=== PATIENT | male | born 1965 | race Caucasian/White ===

== ENCOUNTER 2016-08-06 09:01 | Emergency (ER) | payer OTHER ==
--- NOTE | 2016-08-06 09:34 | ED ---
Back Pain HPI - General Chief Complaint: Back Pain/Injury Stated Complaint: Back pain Time Seen by Provider: 08/06/16 09:22 Source: patient, RN notes reviewed Mode of arrival: ambulatory Limitations: no limitations - History of Present Illness Initial Comments: 50-year-old male presents emergency Department with chief complaint low back pain. Patient states she's had this ongoing pain for one month after he was splitting some wood and lifting what. She states she did not feel slight twinges to his back at that time. Patient denies any bowel or bladder incontinence or retention. Patient states that he has some pain that radiates from his right buttocks, right low back region to his right thigh down to his knee. He occasionally has some paresthesias type pain. Patient states that symptoms are slightly improving but states it's not much better as he would expect after one month. Patient states he has no abdominal pain including nausea, vomiting diarrhea constipation. Patient states it is not here for pain medication as he currently takes [place]. - Related Data Home Medications Medication Instructions Recorded Confirmed Atenolol [Tenormin] 25 mg PO DAILY 06/02/15 08/06/16 Cyclobenzaprine [Flexeril] 10 mg PO HS 06/02/15 08/06/16 HYDROcodone/APAP 7.5-325MG [[place] 1 tab PO TID PRN 06/02/15 08/06/16 7.5-325] ALPRAZolam [Xanax] 0.5 mg PO DAILY PRN 08/06/16 08/06/16 Gluc/[place]-MSM#1/C/Unruly/Pete/Bor 1 tab PO DAILY 08/06/16 08/06/16 [Glucosamine-Chondroitin Tablet] Lisinopril [Prinivil] 5 mg PO DAILY 08/06/16 08/06/16 Previous Rx's Medication Instructions Recorded Ibuprofen [Motrin] 600 mg PO Q8HR PRN #30 tab 06/02/15 Cyclobenzaprine [Flexeril] 10 mg PO TID PRN #15 tab 08/06/16 methylPREDNISolone [Medrol Dose 4 mg PO DIRECTED #1 pack 08/06/16 Pack] Allergies Allergy/AdvReac Type Severity Reaction Status Date / Time No Known Allergies Allergy Verified 08/06/16 09:25 Review of Systems ROS Statement: Those systems with pertinent positive or pertinent negative responses have been documented in the HPI. ROS Other: All systems not noted in ROS Statement are negative. Past Medical History Past Medical History: Hypertension History of Any Multi-Drug Resistant Organisms: None Reported Past Surgical History: Orthopedic Surgery Additional Past Surgical History / Comment(s): left leg multiple orthopedic surgeries due to accident Past Psychological History: No Psychological Hx Reported Smoking Status: Former smoker Past Alcohol Use History: Rare Past Drug Use History: None Reported General Exam Limitations: no limitations General appearance: alert, in no apparent distress Head exam: Present: atraumatic, normocephalic, normal inspection Neck exam: Present: normal inspection, full ROM. Absent: tenderness, meningismus, lymphadenopathy Respiratory exam: Present: normal lung sounds bilaterally. Absent: respiratory distress, wheezes, rales, rhonchi, stridor Cardiovascular Exam: Present: regular rate, normal rhythm, normal heart sounds. Absent: systolic murmur, diastolic murmur, rubs, gallop, clicks GI/Abdominal exam: Present: soft, normal bowel sounds. Absent: distended, tenderness, guarding, rebound, rigid Extremities exam: Present: normal inspection, full ROM, normal capillary refill , other (Equal strength of lower extremity is 5/5 neurovascular intact). Absent : tenderness, pedal edema, joint swelling, calf tenderness Back exam: Present: full ROM, other (Mild pain with straight leg raise on the right). Absent: tenderness, paraspinal tenderness, vertebral tenderness Neurological exam: Present: alert, reflexes normal. Absent: motor sensory deficit Skin exam: Present: warm, dry, intact, normal color. Absent: rash Course Vital Signs 08/06/16 09:10 Temperature 98.1 F Pulse Rate 76 Respiratory 20 Rate Blood Pressure 127/84 O2 Sat by Pulse 99 Oximetry Medical Decision Making - Medical Decision Making 50-year-old male presented emergency department for back pain. Lumbar spine shows multilevel degenerative disc disease, grade 1 retrolisthesis L2-L3 and grade 1 anterolisthesis L3-L4. Patient was treated with steroids, muscle relaxer at this time. Patient will follow-up with Dr. Frausto teacher specialist. Return parameters were discussed. Disposition Clinical Impression: Strain of lumbar region, Lumbar radiculopathy, acute Disposition: HOME SELF-CARE Condition: Stable Instructions: Acute Low Back Pain (ED) Additional Instructions: Please return to the Emergency Department if symptoms worsen or any other concerns. Prescriptions: Cyclobenzaprine [Flexeril] 10 mg PO TID PRN #15 tab PRN Reason: Muscle Spasm methylPREDNISolone [Medrol Dose Pack] 4 mg PO DIRECTED #1 pack Referrals: Mukesh Escamilla MD [Primary Care Provider] - 1-2 days Venancio Lemons DO [Doctor of Osteopathic Medicine] - 1-2 days Time of Disposition: 09:58
--- NOTE | 2016-08-06 09:47 | XR ---
EXAMINATION TYPE: XR lumbosacral spine min 4V DATE OF EXAM: 08/06/2016 9:41 AM COMPARISON: NONE HISTORY: 50-year-old male low back pain for a month. TECHNIQUE: 5 views FINDINGS: Slight rightward truncal shift. 5 lumbar type vertebral bodies. No pars interarticularis defect. Ther e is facet arthropathy in the mid to lower lumbar spine with mild multilevel endplate spondylosis. Th ere is grade 1 retrolisthesis at L2-L3 and grade 1 anterolisthesis at L3-L4. Mild disc interspace percy rowing throughout. Tubal body heights are preserved. Atherosclerotic calcifications within the abdomi nal aorta. IMPRESSION: 1. Rightward truncal shift could be positional or reflect muscle spasm. 2. Mild multilevel degenerative disc disease. Greater degree of facet arthropathy in the mid to lower lumbar spine. 3. Grade 1 retrolisthesis at L2-L3 and grade 1 anterolisthesis at L3-L4. 4. No vertebral compression collapse.
--- NOTE | 2016-08-06 10:04 | ED ---
Disposition Clinical Impression: Strain of lumbar region, Lumbar radiculopathy, acute, Pain due to dental caries Disposition: HOME SELF-CARE Condition: Stable Instructions: Acute Low Back Pain (ED) Additional Instructions: Please return to the Emergency Department if symptoms worsen or any other concerns. Prescriptions: Amoxicillin 875 mg PO Q12HR #20 tablet Methocarbamol [Robaxin-750] 750 mg PO TID #15 tablet methylPREDNISolone [Medrol Dose Pack] 4 mg PO DIRECTED #1 pack Referrals: Venancio Lemons DO [Doctor of Osteopathic Medicine] - 1-2 days Mukesh Escamilla MD [Primary Care Provider] - 1-2 days Time of Disposition: 10:04
[2016-08-06 10:27] VITALS: BP 124/84; PULSE 69; RESP 16; TEMP 98.3
== END 2016-08-06 10:30 | disposition home or self-care (01) ==
LOC: EC 09:01
DX: S39.012A Strain of muscle, fascia and tendon of lower back, initial encounter (principal); I10 Essential (primary) hypertension; Z87.891 Personal history of nicotine dependence; Z79.899 Other long term (current) drug therapy; X50.0XXA Overexertion from strenuous movement or load, initial encounter
CPT/HCPCS: 72110; 99283

== ENCOUNTER 2016-08-23 07:39 | Emergency (ER) | payer OTHER ==
[2016-08-23 07:48] VITALS: BP 137/91; PULSE 86; RESP 20; TEMP 99.3
[2016-08-23] MEDS ORDERED: IPRATROPIUM-ALBUTEROL 3 ML NEB INHALATION STA (08:17)
[2016-08-23] MEDS ORDERED: predniSONE 50 MG TAB PO STA (08:17)
--- NOTE | 2016-08-23 08:18 | XR ---
EXAMINATION TYPE: XR chest 2V DATE OF EXAM: 08/23/2016 8:12 AM COMPARISON: 08/08/2012 HISTORY: Chest pain TECHNIQUE: Frontal and lateral views of the chest are obtained. FINDINGS: There is no focal air space opacity. No evidence for pnuemothorax.No pleural effusion. The cardiac silhouette size is within normal limits. The osseous structures are grossly intact. IMPRESSION: 1. No acute cardiopulmonary process.
--- NOTE | 2016-08-23 08:18 | ED ---
URI HPI - General Chief Complaint: Upper Respiratory Infection Stated Complaint: CHEST CONGESTION AND COUGH Time Seen by Provider: 08/23/16 08:02 Source: patient, RN notes reviewed Mode of arrival: ambulatory Limitations: no limitations - History of Present Illness Initial Comments: 50-year-old male presents emergency Department chief complaint cough and cold- like symptoms. Patient has been sick for last 2 days. Patient states cough is productive with yellow phlegm. Patient states she's had multiple sick contacts at work. Patient is also concern is his has lung cancer. Patient states that he has noticed some wheezing at home. Denies any smoking at this time. Denies any known asthma or COPD. Patient denies fever, chills, ear pain or sore throat. He does have mild sinus congestion denies seasonal ALLERGIES. - Related Data Home Medications Medication Instructions Recorded Confirmed Atenolol [Tenormin] 25 mg PO DAILY 06/02/15 08/23/16 Cyclobenzaprine [Flexeril] 10 mg PO HS 06/02/15 08/23/16 HYDROcodone/APAP 7.5-325MG [[place] 1 tab PO TID PRN 06/02/15 08/23/16 7.5-325] ALPRAZolam [Xanax] 0.5 mg PO HS 08/06/16 08/23/16 Lisinopril [Prinivil] 5 mg PO DAILY 08/06/16 08/23/16 Ibuprofen [Motrin] 800 mg PO BID PRN 08/23/16 08/23/16 Previous Rx's Medication Instructions Recorded Albuterol Sulfate [Proair Hfa] 1 - 2 puff INHALATION Q4HR PRN #1 08/23/16 inhaler Azithromycin [Zithromax Z-pack] 0 mg PO DIRECTED #1 pack 08/23/16 methylPREDNISolone [Medrol Dose 4 mg PO DIRECTED #1 pack 08/23/16 Pack] Allergies Allergy/AdvReac Type Severity Reaction Status Date / Time No Known Allergies Allergy Verified 08/23/16 08:05 Review of Systems ROS Statement: Those systems with pertinent positive or pertinent negative responses have been documented in the HPI. ROS Other: All systems not noted in ROS Statement are negative. Past Medical History Past Medical History: Hypertension History of Any Multi-Drug Resistant Organisms: None Reported Past Surgical History: Orthopedic Surgery Additional Past Surgical History / Comment(s): left leg multiple orthopedic surgeries due to accident Past Psychological History: No Psychological Hx Reported Smoking Status: Former smoker Past Alcohol Use History: Rare Past Drug Use History: None Reported General Exam Limitations: no limitations General appearance: alert, in no apparent distress Head exam: Present: atraumatic, normocephalic, normal inspection Eye exam: Present: normal appearance, PERRL, EOMI. Absent: scleral icterus, conjunctival injection, periorbital swelling ENT exam: Present: normal exam, normal oropharynx, mucous membranes moist, TM's normal bilaterally, normal external ear exam Neck exam: Present: normal inspection, full ROM. Absent: tenderness, meningismus, lymphadenopathy Respiratory exam: Present: wheezes (faint Bilaterally). Absent: normal lung sounds bilaterally, respiratory distress, rales, rhonchi, stridor Cardiovascular Exam: Present: regular rate, normal rhythm, normal heart sounds. Absent: systolic murmur, diastolic murmur, rubs, gallop, clicks Neurological exam: Present: alert Skin exam: Present: warm, dry, intact, normal color. Absent: rash Course Vital Signs 08/23/16 08/23/16 08/23/16 07:45 08:39 08:49 Temperature 99.3 F Pulse Rate 86 86 86 Respiratory 20 Rate Blood Pressure 137/91 O2 Sat by Pulse 97 Oximetry - Reevaluation(s) Reevaluation #1: 08/23/16 08:57 Patient was reevaluated after DuoNeb treatment. Patient is moving air better, minimal wheezing. Updated on chest x-ray results. Medical Decision Making - Medical Decision Making 50-year-old male presented for cough and cold-like symptoms. Patient had acute bronchitis. Patient be given Proventil inhaler, steroids. Patient is concerned about family members in the household secondary to having lung cancer. Patient informed is most likely viral but will be given antibiotics at this time. Patient will be discharged return parameters were discussed. Disposition Clinical Impression: Acute bronchitis with bronchospasm Disposition: HOME SELF-CARE Condition: Stable Instructions: Acute Bronchitis (ED) Additional Instructions: Please return to the Emergency Department if symptoms worsen or any other concerns. Prescriptions: Albuterol Sulfate [Proair Hfa] 1 - 2 puff INHALATION Q4HR PRN #1 inhaler PRN Reason: difficulty in breathing Azithromycin [Zithromax Z-pack] 0 mg PO DIRECTED #1 pack methylPREDNISolone [Medrol Dose Pack] 4 mg PO DIRECTED #1 pack Time of Disposition: 08:59
== END 2016-08-23 09:24 | disposition home or self-care (01) ==
LOC: EC 07:39
DX: J20.9 Acute bronchitis, unspecified (principal); I10 Essential (primary) hypertension; Z87.891 Personal history of nicotine dependence; Z79.899 Other long term (current) drug therapy
CPT/HCPCS: 99283 ×2; 94640; 71020; J7512

== ENCOUNTER 2017-04-16 11:08 | Emergency (ER) | payer OTHER ==
[2017-04-16 12:03] LABS: Basophils # (A) 0.1 k/uL (0-0.2); Basophils % (A) 0 %; CH 31.7; CHCM 35.3; Eosinophils # (A) 0.4 k/uL (0-0.7); Eosinophils % (A) 4 %; HCT 42.2 % (39.0-53.0); HDW 2.39; HGB 14.4 gm/dL (13.0-17.5); Luc # (Auto) 0.15; Luc % (Auto) 1; Lymphocytes # (A) 2.3 k/uL (1.0-4.8); Lymphocytes % (A) 21 %; MCH 30.8 pg (25.0-35.0); MCHC 34.2 g/dL (31.0-37.0); Mean Platelet Volume 6.5; Monocytes # (A) 0.7 k/uL (0-1.0); Monocytes % (A) 6 %; Neutrophils # (A) 7.4 k/uL (1.3-7.7); Neutrophils % (A) 68 %; RBC 4.69 m/uL (4.30-5.90); RDW 11.9 % (11.5-15.5); WBC (Perox) 10.47
[2017-04-16 12:11] LABS: ALT 37 U/L (21-72); AST 23 U/L (17-59); Alkaline Phosphatase 86 U/L (38-126); Anion Gap 9 mmol/L; Blood Urea Nitrogen 13 mg/dL (9-20); C Reactive Protein 21.9 mg/L (<10.0); Calcium 9.8 mg/dL (8.4-10.2); Carbon Dioxide 25 mmol/L (22-30); Chloride 104 mmol/L (98-107); Glucose 98 mg/dL (74-99); Non-African American GFR(MDRD) >60 (>60 ml/min/1.73 sqM); Potassium 4.4 mmol/L (3.5-5.1); Sodium 138 mmol/L (137-145); Total Bilirubin 0.5 mg/dL (0.2-1.3); Total Protein 6.9 g/dL (6.3-8.2)
--- NOTE | 2017-04-16 12:24 | XR ---
EXAMINATION TYPE: XR elbow complete RT DATE OF EXAM: 04/16/2017 COMPARISON: NONE HISTORY: 51-year-old male with pain TECHNIQUE: 3 views FINDINGS: There is prominent focal soft tissue swelling overlying the olecranon. No elbow joint effusion. Tiny ossicle along the anterior aspect of the medial condyle could represent sequela of remote injury. No acute fracture, subluxation, or dislocation. IMPRESSION: Focal olecranon soft tissue swelling could represent soft tissue contusion, an olecranon bursitis, or cellulitis. No underlying acute osseous abnormality seen.
--- NOTE | 2017-04-16 12:32 | ED ---
General Adult HPI - General Chief complaint: Extremity Problem,Nontraumatic Stated complaint: Elbow swelling Time Seen by Provider: 04/16/17 11:27 Source: patient, RN notes reviewed Mode of arrival: ambulatory Limitations: no limitations - History of Present Illness Initial comments: 51-year-old male presents to the emergency department with a chief complaint of right elbow redness and swelling. He states he's had this for the last week or so. He states is now becoming warm. He states he is able to move the elbow without difficulty. He states that he hasn't noticed a fever chills at home. He was concerned due to the continued redness and swelling so he thought that he should be seen. Patient denies any recent fever, chills, shortness of breath , chest pain, back pain, abdominal pain, nausea vomiting, numbness or tingling, dysuria or hematuria, constipation or diarrhea, headaches or visual changes, or any other current symptoms. - Related Data Home Medications Medication Instructions Recorded Confirmed Cyclobenzaprine [Flexeril] 10 mg PO HS 06/02/15 04/16/17 HYDROcodone/APAP 7.5-325MG [[place] 1 tab PO TID PRN 06/02/15 04/16/17 7.5-325] Lisinopril [Prinivil] 5 mg PO DAILY 08/06/16 04/16/17 Ibuprofen [Motrin] 600 mg PO BID PRN 04/16/17 04/16/17 Metoprolol Tartrate [Lopressor] 25 mg PO BID 04/16/17 04/16/17 QUEtiapine [SEROquel] 50 mg PO HS 04/16/17 04/16/17 traZODone HCL [Desyrel] 100 mg PO HS 04/16/17 04/16/17 Previous Rx's Medication Instructions Recorded Cephalexin [Keflex] 500 mg PO Q6HR #40 cap 04/16/17 Sulfamethox-Tmp 800-160Mg [Bactrim 2 each PO Q12HR #56 tab 04/16/17 DS 800-160 mg] Allergies Allergy/AdvReac Type Severity Reaction Status Date / Time No Known Allergies Allergy Verified 04/16/17 11:15 Review of Systems ROS Statement: Those systems with pertinent positive or pertinent negative responses have been documented in the HPI. ROS Other: All systems not noted in ROS Statement are negative. Past Medical History Past Medical History: Hypertension History of Any Multi-Drug Resistant Organisms: None Reported Past Surgical History: Orthopedic Surgery Additional Past Surgical History / Comment(s): left leg multiple orthopedic surgeries due to accident Past Psychological History: No Psychological Hx Reported Smoking Status: Former smoker Past Alcohol Use History: Rare Past Drug Use History: None Reported General Exam - General Exam Comments Initial Comments: General: The patient is awake and alert, in no distress, and does not appear acutely ill. Neck: The neck is supple, there is no tenderness. Cardiovascular: There is a regular rate and rhythm. No murmur, rub or gallop is appreciated. Respiratory: Lungs are clear to auscultation, respirations are non-labored, breath sounds are equal. No wheezes, stridor, rales, or rhonchi. Musculoskeletal: Sensation intact. 2+ pulses at the right upper x-ray. Range of motion of right wrist right elbow and right shoulder. Patient does appear to have some redness and swelling over the olecranon bursa that extends around the left elbow. 5 out of 5 muscle strength testing throughout. Neurological: CN II-XII intact, There are no obvious motor or sensory deficits. Coordination appears grossly intact. Speech is normal. Skin: Skin is warm and dry and no rashes or lesions are noted. Psychiatric: Normal mood and affect. Limitations: no limitations Course Vital Signs 04/16/17 11:13 Temperature 100.0 F H Pulse Rate 90 Respiratory 20 Rate Blood Pressure 123/79 O2 Sat by Pulse 98 Oximetry Procedures - Orthopedic Splinting/Casting Injury #1 Side: right Upper Extremity Injury Location: elbow Upper Extremity Immobilizer: Cedric wrap Medical Decision Making - Medical Decision Making 51-year-old male presents for what appears to be a right olecranon bursitis and cellulitis. At this time patient does not have a high white count. Patient's fever was 100 here in the emergency department. This time he is full range of motion of the right elbow. We will start him on outpatient antibiotics we did patient Cedric wrap. We did discuss close follow up with orthopedic discussed return parameters all the patient's questions. He stated the Robert is given this plan. Patient discharged. - Lab Data Result diagrams: 04/16/17 11:44 04/16/17 11:44 Lab Results 04/16/17 04/16/17 Range/Units 11:44 11:44 WBC 11.0 H (3.8-10.6) k/uL RBC 4.69 (4.30-5.90) m/uL Hgb 14.4 (13.0-17.5) gm/dL Hct 42.2 (39.0-53.0) % MCV 90.0 (80.0-100.0) fL MCH 30.8 (25.0-35.0) pg MCHC 34.2 (31.0-37.0) g/dL RDW 11.9 (11.5-15.5) % Plt Count 279 (150-450) k/uL Neutrophils % 68 % Lymphocytes % 21 % Monocytes % 6 % Eosinophils % 4 % Basophils % 0 % Neutrophils # 7.4 (1.3-7.7) k/uL Lymphocytes # 2.3 (1.0-4.8) k/uL Monocytes # 0.7 (0-1.0) k/uL Eosinophils # 0.4 (0-0.7) k/uL Basophils # 0.1 (0-0.2) k/uL ESR 8 (0-15) mm/hr Sodium 138 (137-145) mmol/L Potassium 4.4 (3.5-5.1) mmol/L Chloride 104 (98-107) mmol/L Carbon Dioxide 25 (22-30) mmol/L Anion Gap 9 mmol/L BUN 13 (9-20) mg/dL Creatinine 0.90 (0.66-1.25) mg/dL Est GFR (MDRD) Af Amer >60 (>60 ml/min/1.73 sqM) Est GFR (MDRD) Non-Af >60 (>60 ml/min/1.73 sqM) Glucose 98 (74-99) mg/dL Calcium 9.8 (8.4-10.2) mg/dL Total Bilirubin 0.5 (0.2-1.3) mg/dL AST 23 (17-59) U/L ALT 37 (21-72) U/L Alkaline Phosphatase 86 (38-126) U/L C-Reactive Protein 21.9 H (<10.0) mg/L Total Protein 6.9 (6.3-8.2) g/dL Albumin 4.1 (3.5-5.0) g/dL - Radiology Data Radiology results: report reviewed, image reviewed Disposition Clinical Impression: Olecranon bursitis, right elbow, Cellulitis of right elbow Disposition: HOME SELF-CARE Condition: Stable Instructions: Cellulitis (ED), Elbow Bursitis (ED) Additional Instructions: Please use medication as discussed. Please follow up with family doctor if symptoms have not improved over the next two days. Please return to the emergency room if your symptoms increase or worsen or for any other concerns. Prescriptions: Cephalexin [Keflex] 500 mg PO Q6HR #40 cap Sulfamethox-Tmp 800-160Mg [Bactrim DS 800-160 mg] 2 each PO Q12HR #56 tab Referrals: Mukesh Escamilla MD [Primary Care Provider] - 1-2 days Kael Avila DO [Doctor of Osteopathic Medicine] - 1-2 days Time of Disposition: 13:28
[2017-04-16 13:24] LABS: Erythrocyte Sedimentation Rate 8 mm/hr (0-15)
[2017-04-16 13:50] VITALS: BP 125/80; PULSE 84; RESP 18; TEMP 98.9
== END 2017-04-16 13:48 | disposition home or self-care (01) ==
LOC: EC 11:08
DX: M70.21 Olecranon bursitis, right elbow (principal); L03.113 Cellulitis of right upper limb; I10 Essential (primary) hypertension; Z87.891 Personal history of nicotine dependence; Z79.899 Other long term (current) drug therapy
CPT/HCPCS: 36415; 80053; 85025; 85652; 86140; 87040; 99283

== ENCOUNTER 2023-03-30 08:45 | Emergency (ER) | payer OTHER ==
[2023-03-30] MEDS ORDERED: FAMOTIDINE 20 MG/2 ML VIAL IV STA (08:58)
[2023-03-30] MEDS ORDERED: SODIUM CHLORIDE 0.9% 1,000 ML IV STA (08:58)
[2023-03-30] MEDS ORDERED: MAG HYDROX/AL HYDROX/SIMETH 30 ML, HYOSCYAMINE ELIXIR 10 ML PO STA ×2 (08:58)
[2023-03-30 09:05] VITALS: RESP 18
--- NOTE | 2023-03-30 09:07 | ED ---
Abdominal Pain HPI - General Chief Complaint: Abdominal Pain Stated Complaint: abd/stomach issues Time Seen by Provider: 03/30/23 08:51 Source: patient, RN notes reviewed Mode of arrival: ambulatory Limitations: no limitations - History of Present Illness Initial Comments: This is a 57-year-old male who presents to the emergency department for abdominal pain. States that this has been going on for about 10 days. This tends to move all throughout his abdomen. Sometimes it is localized to the epigastric region, however it is currently the most prominent in the left lower quadrant. The pain and nausea tend to occur in waves. He did have similar p roblems with his abdomen in the past when he would take too many anti- inflammatories and ended up with black stool. However, he has not been on any anti-inflammatories and he denies having any dark stool at this time. He has been taking Tums and other [id number] antacids with no relief in symptoms. Not currently taking a PPI. Denies any fevers or chills. States that whenever he goes to eat something, immediately afterwards he feels uncomfortable and has to stop eating. He cannot attribute this to any foods specifically. MD Complaint: abdominal pain - Related Data Home Medications Medication Instructions Recorded Confirmed Cyclobenzaprine [Flexeril] 10 mg PO HS 06/02/15 04/16/17 HYDROcodone/APAP 7.5-325MG [[place] 1 tab PO TID PRN 06/02/15 04/16/17 7.5-325] lisinopriL [Prinivil] 5 mg PO DAILY 08/06/16 04/16/17 Ibuprofen [Motrin] 600 mg PO BID PRN 04/16/17 04/16/17 Metoprolol Tartrate [Lopressor] 25 mg PO BID 04/16/17 04/16/17 QUEtiapine [SEROquel] 50 mg PO HS 04/16/17 04/16/17 traZODone HCL [Desyrel] 100 mg PO HS 04/16/17 04/16/17 Previous Rx's Medication Instructions Recorded Cephalexin [Keflex] 500 mg PO Q6HR #40 cap 04/16/17 Sulfamethox-Tmp 800-160Mg [Bactrim 2 each PO Q12HR #56 tab 04/16/17 DS 800-160 mg] Hyoscyamine Sulfate [Levsin] 0.125 mg PO Q4H PRN #30 tab 03/30/23 Omeprazole 20 mg PO BID 15 Days #30 cap 03/30/23 Ondansetron Odt [Zofran Odt] 4 mg PO Q8HR PRN #15 tab 03/30/23 Allergies Allergy/AdvReac Type Severity Reaction Status Date / Time No Known Allergies Allergy Verified 03/30/23 08:50 Review of Systems ROS Statement: Those systems with pertinent positive or pertinent negative responses have been documented in the HPI. ROS Other: All systems not noted in ROS Statement are negative. Past Medical History Past Medical History: Hypertension History of Any Multi-Drug Resistant Organisms: None Reported Past Surgical History: Orthopedic Surgery Additional Past Surgical History / Comment(s): left leg multiple orthopedic surgeries due to accident Past Psychological History: No Psychological Hx Reported Past Alcohol Use History: Rare Past Drug Use History: Marijuana General Exam Limitations: no limitations General appearance: alert, in no apparent distress Head exam: Present: atraumatic, normocephalic, normal inspection Respiratory exam: Present: normal lung sounds bilaterally. Absent: respiratory distress, wheezes, rales, rhonchi, stridor Cardiovascular Exam: Present: regular rate, normal rhythm, normal heart sounds. Absent: systolic murmur, diastolic murmur, rubs, gallop, clicks GI/Abdominal exam: Present: soft, tenderness (Diffuse, but most prominent in the LLQ), normal bowel sounds. Absent: distended, guarding, rebound, rigid Neurological exam: Present: alert, oriented X3, CN II-XII intact Psychiatric exam: Present: normal affect, normal mood Skin exam: Present: warm, dry, intact, normal color. Absent: rash Course Vital Signs 03/30/23 03/30/23 08:47 10:55 Temperature 98.4 F 98.2 F Pulse Rate 92 73 Respiratory 18 18 Rate Blood Pressure 145/95 116/83 O2 Sat by Pulse 95 97 Oximetry Medical Decision Making - Medical Decision Making This is a 57-year-old male who presents to the emergency department for abdominal pain. Was pt. sent in by a medical professional or institution? @ -No Did you speak to anyone other than the patient for history? @ -No Did you review nursing and triage notes? @ -I disagree with the aspect about dark stool, patient currently denies this and states that he used to have dark tool with other stomach issues. Were old charts reviewed? @ -No Differential Diagnosis? @ -Differential Abdominal Pain Men: Appendicitis, cholecystitis, diverticulosis, ischemic bowel, pancreatitis, hepatitis, UTI, gastroenteritis, AAA, incarcerated hernia, bowel obstruction, constipation, inflammatory bowel, hepatitis, peptic ulcer disease, splenic infarction, perforated viscus, testicular torsion, this is not meant to be an all-inclusive list EKG interpreted by me (3pts min.)? @ -Not obtained X-rays interpreted by me (1pt min.)? @ -Not obtained CT interpreted by me (1pt min.)? @ -Computed tomography scan of the abdomen and pelvis obtained. My interpretation identifies no evidence of a ureteral calculus or free air. U/S interpreted by me (1pt. min.)? @ -Not obtained What testing was considered but not performed? (CT, X-rays, U/S, labs)? Why? @ -None What meds were considered but not given? Why? @ -None Did you discuss the management of the patient with other professionals? @ -No Did you reconcile home meds? @ -No Was smoking cessation discussed for >3mins.? @ -No Was critical care preformed (if so, how long)? @ -No Were there social determinants of health that impacted care today? How? (Homelessness, low income, unemployed, alcoholism, drug addiction, transportation, low edu. Level, literacy, decrease access to med. care, usp, rehab)? @ -No Was there de-escalation of care discussed even if they declined? (Discuss DNR or withdrawal of care, Hospice)? @ -No What co-morbidities impacted this encounter? (DM, HTN, Smoking, COPD, CAD, Cancer, CVA, Hep., AIDS, mental health diagnosis, sleep apnea, morbid obesity)? @ -None Was patient admitted / discharged? @ -Discharged. Lab work obtained and found to be unremarkable. Urinalysis negative for signs of infection. Computed tomography scan of the abdomen and pelvis obtained revealing findings consistent with peptic ulcer disease without evidence of perforation. There was some inflammation that was said could be related to pancreatitis, however the patient has normal pancreatic enzymes. There is also a benign left adrenal nodule that'll need a follow-up computed tomography scan in 12 months. Patient treated with IV fluids, famotidine, and a GI cocktail, with significant relief in symptoms. Rx for omeprazole, levsin, and zofran provided with dosing instructions reviewed. Advised that the Levsin combined with [id number] Maalox is equivalent to the GI cocktail he received in the emergency department. Information for GI follow up provided. He is instructed to contact them for a follow up appointment. Patient discharged home in stable condition. Undiagnosed new problem with uncertain prognosis? @ -None Drug Therapy requiring intensive monitoring for toxicity (Heparin, Nitro, Insulin, Cardizem)? @ -None Were any procedures done? @ -None Diagnosis/symptom? @ -Peptic ulcer Acute, or Chronic, or Acute on Chronic? @ -Acute Uncomplicated (without systemic symptoms) or Complicated (systemic symptoms)? @ -Uncomplicated Side effects of treatment? @ -None Exacerbation, Progression, or Severe Exacerbation] @ -Not applicable Poses a threat to life or bodily function? @ -No Return precautions reviewed in depth, the patient is instructed to return to the emergency department with any new, worsening, or concerning symptoms. Patient verbalized understanding. This case was discussed in detail with the attending ED physician, Dr. Foster. Presentation, findings, and treatment plan discussed in detail as well. - Lab Data Result diagrams: 03/30/23 09:00 03/30/23 09:00 Lab Results 03/30/23 03/30/23 03/30/23 Range/Units 09:00 09:00 09:00 WBC 10.6 (3.8-10.6) k/uL RBC 4.38 (4.30-5.90) m/uL Hgb 13.9 (13.0-17.5) gm/dL Hct 40.4 (39.0-53.0) % MCV 92.3 (80.0-100.0) fL MCH 31.8 (25.0-35.0) pg MCHC 34.5 (31.0-37.0) g/dL RDW 11.3 L (11.5-15.5) % Plt Count 379 (150-450) k/uL MPV 7.0 Neutrophils % 70 % Lymphocytes % 19 % Monocytes % 4 % Eosinophils % 5 % Basophils % 1 % Neutrophils # 7.5 (1.3-7.7) k/uL Lymphocytes # 2.0 (1.0-4.8) k/uL Monocytes # 0.4 (0-1.0) k/uL Eosinophils # 0.5 (0-0.7) k/uL Basophils # 0.1 (0-0.2) k/uL Sodium 136 L (137-145) mmol/L Potassium 4.5 (3.5-5.1) mmol/L Chloride 104 (98-107) mmol/L Carbon Dioxide 21 L (22-30) mmol/L Anion Gap 11 mmol/L BUN 13 (9-20) mg/dL Creatinine 0.82 (0.66-1.25) mg/dL Est GFR (CKD-EPI)AfAm >90 (>60 ml/min/1.73 sqM) Est GFR (CKD-EPI)NonAf >90 (>60 ml/min/1.73 sqM) Glucose 116 H (74-99) mg/dL Plasma Lactic Acid Hector (0.7-2.0) mmol/L Calcium 9.9 (8.4-10.2) mg/dL Total Bilirubin 0.5 (0.2-1.3) mg/dL AST 23 (17-59) U/L ALT 19 (4-49) U/L Alkaline Phosphatase 69 (38-126) U/L Total Protein 6.8 (6.3-8.2) g/dL Albumin 4.1 (3.5-5.0) g/dL Amylase 80 (30-110) U/L Lipase 57 (23-300) U/L Urine Color Yellow Urine Appearance Clear (Clear) Urine pH 5.0 (5.0-8.0) Ur Specific [place] 1.030 (1.001-1.035) Urine Protein Negative (Negative) Urine Glucose (UA) Negative (Negative) Urine Ketones Negative (Negative) Urine Blood Negative (Negative) Urine Nitrite Negative (Negative) Urine Bilirubin Negative (Negative) Urine Urobilinogen <2.0 (<2.0) mg/dL Ur Leukocyte Esterase Negative (Negative) 03/30/23 Range/Units 09:00 WBC (3.8-10.6) k/uL RBC (4.30-5.90) m/uL Hgb (13.0-17.5) gm/dL Hct (39.0-53.0) % MCV (80.0-100.0) fL MCH (25.0-35.0) pg MCHC (31.0-37.0) g/dL RDW (11.5-15.5) % Plt Count (150-450) k/uL MPV Neutrophils % % Lymphocytes % % Monocytes % % Eosinophils % % Basophils % % Neutrophils # (1.3-7.7) k/uL Lymphocytes # (1.0-4.8) k/uL Monocytes # (0-1.0) k/uL Eosinophils # (0-0.7) k/uL Basophils # (0-0.2) k/uL Sodium (137-145) mmol/L Potassium (3.5-5.1) mmol/L Chloride (98-107) mmol/L Carbon Dioxide (22-30) mmol/L Anion Gap mmol/L BUN (9-20) mg/dL Creatinine (0.66-1.25) mg/dL Est GFR (CKD-EPI)AfAm (>60 ml/min/1.73 sqM) Est GFR (CKD-EPI)NonAf (>60 ml/min/1.73 sqM) Glucose (74-99) mg/dL Plasma Lactic Acid Hector 0.9 (0.7-2.0) mmol/L Calcium (8.4-10.2) mg/dL Total Bilirubin (0.2-1.3) mg/dL AST (17-59) U/L ALT (4-49) U/L Alkaline Phosphatase (38-126) U/L Total Protein (6.3-8.2) g/dL Albumin (3.5-5.0) g/dL Amylase (30-110) U/L Lipase (23-300) U/L Urine Color Urine Appearance (Clear) Urine pH (5.0-8.0) Ur Specific [place] (1.001-1.035) Urine Protein (Negative) Urine Glucose (UA) (Negative) Urine Ketones (Negative) Urine Blood (Negative) Urine Nitrite (Negative) Urine Bilirubin (Negative) Urine Urobilinogen (<2.0) mg/dL Ur Leukocyte Esterase (Negative) - Radiology Data Radiology results: report reviewed, image reviewed Disposition Clinical Impression: Peptic ulcer disease Disposition: HOME SELF-CARE Instructions (If sedation given, give patient instructions): Peptic Ulcer (ED), Diet for Stomach Ulcers and Gastritis (ED) Additional Instructions: Return to the emergency department with any new, worsening, or concerning symptoms. Take the omeprazole twice daily for 15 days. Try to take this 30-60 minutes before eating or taking other medication. You can take the Levsin up to every 4 hours for abdominal discomfort. This combined with Maalox is the m edication we gave you in the emergency department. You can take the Zofran up to every 8 hours as needed for nausea and vomiting. Avoid anti-inflammatories such as ibuprofen or naproxen. Contact gastroenterology as listed below for a follow up appointment and reevaluation of ongoing symptoms. Follow up with your primary care provider in 1-2 days. Prescriptions: Hyoscyamine Sulfate [Levsin] 0.125 mg PO Q4H PRN #30 tab PRN Reason: Gi Upset Omeprazole 20 mg PO BID 15 Days #30 cap Ondansetron Odt [Zofran Odt] 4 mg PO Q8HR PRN #15 tab PRN Reason: Nausea And Vomiting Is patient prescribed a controlled substance at d/c from ED?: No Referrals: Walter Candelaria Jr, DO [Primary Care Provider] - 1-2 days Keena Calles MD [STAFF PHYSICIAN] - 1-2 days
[2023-03-30 09:23] LABS: Basophils # (A) 0.1 k/uL (0-0.2); Basophils % (A) 1 %; Eosinophils # (A) 0.5 k/uL (0-0.7); Eosinophils % (A) 5 %; HCT 40.4 % (39.0-53.0); HGB 13.9 gm/dL (13.0-17.5); Lymphocytes % (A) 19 %; MCH 31.8 pg (25.0-35.0); MCHC 34.5 g/dL (31.0-37.0); MCV 92.3 fL (80.0-100.0); Monocytes # (A) 0.4 k/uL (0-1.0); Monocytes % (A) 4 %; Neutrophils # (A) 7.5 k/uL (1.3-7.7); Neutrophils % (A) 70 %; Platelet Count 379 k/uL (150-450); RBC 4.38 m/uL (4.30-5.90); RDW 11.3 % (11.5-15.5); WBC 10.6 k/uL (3.8-10.6)
[2023-03-30 09:32] LABS: ALT 19 U/L (4-49); AST 23 U/L (17-59); African American GFR (CKD) >90 (>60 ml/min/1.73 sqM); Albumin 4.1 g/dL (3.5-5.0); Alkaline Phosphatase 69 U/L (38-126); Amylase 80 U/L (30-110); Anion Gap 11 mmol/L; Blood Urea Nitrogen 13 mg/dL (9-20); Calcium 9.9 mg/dL (8.4-10.2); Carbon Dioxide 21 mmol/L (22-30); Chloride 104 mmol/L (98-107); Glucose 116 mg/dL (74-99); Lipase 57 U/L (23-300); Non-African American GFR(CKD) >90 (>60 ml/min/1.73 sqM); Potassium 4.5 mmol/L (3.5-5.1); Sodium 136 mmol/L (137-145); Total Bilirubin 0.5 mg/dL (0.2-1.3); Total Protein 6.8 g/dL (6.3-8.2)
[2023-03-30 09:34] LABS: Appearance,Urine Clear (Clear); Bilirubin,Urine Negative (Negative); Blood,Urine Negative (Negative); Color,Urine Yellow; Glucose,Urine (UA) Negative (Negative); Ketones,Urine Negative (Negative); Leukocyte Esterase,Urine Negative (Negative); Nitrite,Urine Negative (Negative); Protein,Urine Negative (Negative); Urobilinogen,Urine <2.0 mg/dL (<2.0)
--- NOTE | 2023-03-30 10:14 | CT ---
EXAMINATION TYPE: CT abdomen pelvis w con DATE OF EXAM: 03/30/2023 COMPARISON: NONE HISTORY: 57-year-old male upper abdominal pain with bloating feeling, nausea, intermittent diarrhea, dark stool TECHNIQUE: Contiguous axial scanning of the abdomen and pelvis following administration of 100 ml Iso aarti 300 IV contrast. Delayed images through the kidneys and coronal/sagittal reconstructions perform ed. CT DLP: 1146.1 mGycm Automated exposure control for dose reduction was used. FINDINGS: LUNG BASES: Scattered coronary artery calcifications. Heart normal size. Strandy atelectasis at the l eft base. Otherwise, no significant abnormality is appreciated. LIVER/GB: No significant abnormality is appreciated. PANCREAS: No significant abnormality is seen. SPLEEN: A couple small splenules. No significant abnormality is seen. ADRENALS: Indeterminate 7 mm left adrenal nodule. 12 month follow-up recommended. KIDNEYS: No significant abnormality is seen. BOWEL: Small area of focal wall thickening at the duodenal bulb with adjacent fat stranding and a few prominent lymph nodes measuring 9 mm. Refer to axial images 34, 37, 38. No dilated small bowel, free fluid, or free air. Normal appendix. Scattered mild stool. No pericolic inflammatory change. LYMPH NODES: No greater than 1cm abdominal or pelvic lymph nodes are appreciated. PELVIS: Mild circumferential bladder wall thickening may be chronic for the patient. Correlated to ex clude cystitis. Pelvic phlebolith. No abnormal fluid collection in the pelvis or pelvic lymphadenopat hy. OSSEOUS STRUCTURES: Mild multilevel degenerative changes in the lumbar spine. OTHER: Mild apical scarring calcifications at abdominal aorta. IMPRESSION: 1. FINDINGS SUSPICIOUS FOR PEPTIC ULCER DISEASE AT THE DUODENAL BULB. THERE MAY BE A DEEP ULCER GIVEN SOME HAZY DENSITY IN THE ADJACENT FAT. NO PERFORATION SEEN AT THIS TIME. APPROPRIATE GI EVALUATION A DVISED. INFLAMMATION RELATED TO ACUTE PANCREATITIS CONSIDERED LESS LIKELY. CORRELATE WITH AMYLASE AND LIPASE LEVELS. 2. 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
[2023-03-30 10:58] VITALS: BP 116/83; PULSE 73; TEMP 98.2
== END 2023-03-30 10:56 | disposition home or self-care (01) ==
LOC: EC 08:45
DX: K27.3 Acute peptic ulcer, site unspecified, without hemorrhage or perforation (principal); I10 Essential (primary) hypertension; F12.90 Cannabis use, unspecified, uncomplicated; Z79.899 Other long term (current) drug therapy
CPT/HCPCS: 36415; 80053; 82150; 83605; 83690; 85025; 81003; 74177; 99284; 96374; J3490; Q9967